=== PATIENT | male | born 1990 ===

== ENCOUNTER 2020-10-05 23:47 | Emergency (ER) | payer OTHER ==
[2020-10-06 00:26] VITALS: BP 144/92
[2020-10-06] MEDS ORDERED: IBUPROFEN 600 MG TAB PO ONE (05:32)
[2020-10-06] MEDS ORDERED: ACETAMINOPHEN 500 MG TAB PO ONE (05:32)
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
== END 2020-10-06 07:08 | disposition home or self-care (01) ==
LOC: ED 23:47
DX: M62.838 Other muscle spasm (principal); M62.830 Muscle spasm of back; Z79.899 Other long term (current) drug therapy; V49.49XA Driver injured in collision with other motor vehicles in traffic accident, initial encounter; Y92.410 Unspecified street and highway as the place of occurrence of the external cause; Y93.89 Activity, other specified; Y99.8 Other external cause status
CPT/HCPCS: 72040; 72072; 99283